=== PATIENT | female | born 1945 | race Caucasian/White ===

== ENCOUNTER 2016-09-07 15:22 | Emergency (ER) | payer OTHER ==
[~2016-09-07] VITALS: Ht 167.6 cm; Wt 88.0 kg
--- NOTE | ~2016-09-07 | EKG ---
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
[~2016-09-07 15:22] MED LIST: B-121000 MCG PO; BENICAR HCT 401 EACH PO; BIOTIN300 MCG PO; CELEXA 20 MG TA20 M1 PO; COLACE100 MG PO; CYCLOBENZAPRINE10 MG PO; FISH OIL 1,0001 EAC8 PO; HYDROCODON-ACE1 EAC8 PO; HYDROCODONE-AP1 EA10 PO; LEVOXYL88 MCG PO; MULTIVITAMINS PO; NORVASC 2.5 MG2.5 M1 PO; NORVASC10 MG PO; OMEPRAZOLE 20 M20 M1 PO; PROAIR HFA8.5 GM; ROBAXIN 750 MG750 M1 PO; TRAMADOL 50 MG50 MG PO; VITAMIN A10000 UNI3 PO; VITAMIN C + RO500 MG PO; VITAMIN D1000 UNI1 PO; VITAMIN E400 UNIT PO; VITAMINC500 PO
[2016-09-07 16:43] LABS: HEMATOCRIT 33.9 % (37.0-47.0); HEMOGLOBIN 11.9 gm/dL (12.0-15.0); MCHC 35.1 g/dL (28.0-37.0); MCV 91.2 fL (80.0-100.0); PLATELET COUNT 173 thou/uL (150-400); RBC 3.72 mil/uL (4.20-5.00); RDW 12.8 % (10.5-14.5); WBC 10.1 thou/uL (4.0-11.0)
[2016-09-07 16:48] LABS: MANUAL DIFF YES
[2016-09-07 16:57] LABS: ANION GAP 10 mmol/L (7-16); BUN 27 mg/dL (7-18); CALCIUM 8.7 mg/dL (8.5-10.1); CHLORIDE 100 mmol/L (98-107); CO2 26 mmol/L (21-32); CREATININE 0.8 mg/dL (0.6-1.0); GLUCOSE 143 mg/dL (74-106); POTASSIUM 4.3 mmol/L (3.5-5.1); SODIUM 136 mmol/L (136-145)
[2016-09-07 17:03] LABS: ALBUMIN 3.7 g/dL (3.4-5.0); ALKALINE PHOSPHATASE 73 U/L (46-116); SGOT 37 U/L (15-37); SGPT 52 U/L (30-65); TOTAL BILIRUBIN 0.4 mg/dL (<0.1-1.0); TOTAL PROTEIN 7.6 g/dL (6.4-8.2); TROPONIN-I < 0.04 ng/mL (<0.04-0.07)
[2016-09-07 17:04] LABS: ABSOLUTE NEUTROPHILS 8.7 thou/uL (1.4-8.2); TOTAL CELL COUNT 100
[2016-09-07 17:43] LABS: URINE BILIRUBIN NEGATIVE (Negative); URINE BLOOD NEGATIVE (Negative); URINE COLOR YELLOW; URINE GLUCOSE-RANDOM* NEGATIVE (Negative); URINE KETONES NEGATIVE (Negative); URINE NITRITE NEGATIVE (Negative); URINE PROTEIN (DIPSTICK) NEGATIVE (Negative)
[2016-09-07 20:00] LABS: INR 2.2; PROTIME 23.1 Seconds (9.3-11.4)
== END 2016-09-07 21:54 ==
LOC: ER 15:22
PROVIDERS: Nurse Practitioner Family
DX: K59.00 Constipation, unspecified (principal); I10 Essential (primary) hypertension; K21.9 Gastro-esophageal reflux disease without esophagitis; E03.9 Hypothyroidism, unspecified; F32.9 Major depressive disorder, single episode, unspecified; F41.9 Anxiety disorder, unspecified; Z90.89 Acquired absence of other organs; Z91.041 Radiographic dye allergy status

== ENCOUNTER → 2018-04-08 | Outpatient (CLI) | payer OTHER ==
[~2018-04-08] MED LIST changes: +ALPRAZOLAM 0.0.25 M1 PO; +ASPIR 8181 MG PO; +B-121000 MCG IM; -B-121000 MCG PO; +OXYBUTYNIN 5 MG5 M2 PO; +VALSARTAN-HCTZ1 EAC3 PO
== END ==
LOC: RAD 08:06
DX: M43.16 Spondylolisthesis, lumbar region (principal); M48.061 Spinal stenosis, lumbar region without neurogenic claudication; G95.89 Other specified diseases of spinal cord; M54.2 Cervicalgia; M54.5 Low back pain; Z79.899 Other long term (current) drug therapy; Z91.041 Radiographic dye allergy status; Z79.82 Long term (current) use of aspirin

== ENCOUNTER → 2018-10-07 | Outpatient (CLI) | payer OTHER | LOC: ULTRA 09:19 | DX: I65.23 Occlusion and stenosis of bilateral carotid arteries (principal); E11.9 Type 2 diabetes mellitus without complications; R09.89 Other specified symptoms and signs involving the circulatory and respiratory systems ==